=== PATIENT | male | born 1945 | race Hispanic/Latino ===

== ENCOUNTER 2017-10-22 21:48 | Emergency (ER) | payer OTHER ==
[~2017-10-22] VITALS: Ht 172.7 cm; Wt 79.8 kg
[~2017-10-22 21:48] MED LIST: ATORVASTATIN CA20 MG PO; GLIPIZIDE ER10 MG; GLIPIZIDE10 MG PO; GLUCOPHAGE1000 MG; INVOKANA PO; JANUVIA100 MG PO; LANTUS 3ML100 UNITS/ SC; LISINOPRIL20 MG PO; METFORMIN HCL1000 MG PO
[2017-10-22] MEDS ORDERED: HYDROCODONE/APAP 10MG-325MG TAB PO ONE (23:00)
== END 2017-10-22 23:37 | disposition home or self-care (01) ==
LOC: ER 21:48
DX: M43.6 Torticollis (principal); M62.838 Other muscle spasm
CPT/HCPCS: 93005; 99283

== ENCOUNTER 2019-05-20 09:14 | Observation (INO) | payer MEDICARE, OTHER ==
[~2019-05-20] VITALS: Ht 172.7 cm; Wt 79.8 kg
[2019-05-20] MEDS ORDERED: NOVOLOG100 UNIT/1 SQ (09:29)
[2019-05-20] MEDS ORDERED: LEVEMIR100 UNIT/1 SQ (09:29)
[2019-05-20 09:44] LABS: BASOPHILS # (AUTO) 0.1 (0.0-0.1); BASOPHILS % 0.8 % (0.0-1.0); EOSINOPHILS # (AUTO) 0.2 (0.0-0.4); HEMATOCRIT 45.8 % (38.2-49.6); HEMOGLOBIN 15.3 g/dL (14.0-18.0); LYMPHOCYTES # (AUTO) 2.2 (1.0-3.2); LYMPHOCYTES % 30.5 % (18.0-39.1); MEAN CORPUSCULAR HEMOGLOBIN 31.2 pg (28-32); MEAN CORPUSCULAR HGB CONC 33.4 g/dL (31-35); MEAN CORPUSCULAR VOLUME 93.3 fL (81-99); MONOCYTES # (AUTO) 0.7 (0.2-0.8); MONOCYTES % 9.5 % (4.4-11.3); NEUTROPHILS # (AUTO) 4.1 (2.1-6.9); NEUTROPHILS % 55.8 % (38.7-80.0); PLATELET COUNT 200 x10e3/uL (140-360); RED BLOOD COUNT 4.91 x10e6/uL (4.3-5.7); RED CELL DISTRIBUTION WIDTH 12.8 % (11.7-14.4)
[2019-05-20 09:56] LABS: INR 0.95; PARTIAL THROMBOPLASTIN TIME 29.7 seconds (23.8-35.5); PROTHROMBIN TIME 13.2 seconds (11.9-14.5)
--- NOTE | 2019-05-20 09:59 | Diagnostic Imaging Report ---
EXAMINATION: PA and lateral views of the chest. COMPARISON: None CLINICAL HISTORY: Chest pain DISCUSSION: Lines/tubes: None. Lungs: The lungs are well inflated and clear. No pneumonia or pulmonary edema. Pleura: No pleural effusion or pneumothorax. Heart and mediastinum: The cardiomediastinal silhouette is normal. Bones and soft tissues: No acute bony abnormalities. IMPRESSION: No acute cardiopulmonary abnormalities. Signed by: Dr. Steve Saenz M.D. on 05/20/2019 9:56 AM
[2019-05-20 10:08] LABS: ALANINE AMINOTRANSFERASE 78 IU/L (0-55); ALBUMIN 3.9 g/dL (3.5-5.0); ALBUMIN/GLOBULIN RATIO 1.1 (0.8-2.0); ALKALINE PHOSPHATASE 83 IU/L (40-150); ANION GAP 15.1 mmol/L (8-16); BLOOD UREA NITROGEN 14 mg/dL (7-26); BUN/CREATININE RATIO 13 (6-25); CALCIUM 9.3 mg/dL (8.4-10.2); CARBON DIOXIDE 24 mmol/L (22-29); CHLORIDE 99 mmol/L (98-107); CREATININE, SERUM 1.04 mg/dL (0.72-1.25); EST GLOMERULAR FILTRATION RATE > 60 ML/MIN (60-); GLUCOSE 252 mg/dL (74-118); POTASSIUM 4.1 mmol/L (3.5-5.1); SODIUM 134 mmol/L (136-145)
[2019-05-20] MEDS ORDERED: ASPIRIN 81 MG CHEW TAB PO NR (10:18)
[2019-05-20] MEDS ORDERED: ONDANSETRON HCL INJ 2MG/ML 2ML 2 MG/ML VIAL IV NR (10:30)
[2019-05-20 10:41] LABS: BILIRUBIN,URINE NEGATIVE (NEGATIVE); CLARITY,URINE CLEAR (CLEAR); COLOR,URINE YELLOW (YELLOW); KETONES,URINE NEGATIVE (NEGATIVE); LEUKOCYTE ESTERASE ,URINE NEGATIVE (NEGATIVE); NITRITE,URINE NEGATIVE (NEGATIVE); PROTEIN,URINE DIPSTICK NEGATIVE (NEGATIVE); URINE UROBILINOGEN 0.2 mg/dL (0.2 - 1)
[2019-05-20 11:16] LABS: BACTERIA,URINE FEW /HPF; EPITHELIAL CELLS,URINE FEW /LPF; RBC,URINE 0-5 /HPF (0-5); WBC,URINE (MAN) 0-5 /HPF (0-5)
[2019-05-20 11:41] LABS: CREATINE KINASE MB 1.3 ng/mL (0-5.0)
[2019-05-20] MEDS ORDERED: DEXTROSE 50% SYRINGE 50 ML IV PRN (11:45)
[2019-05-20] MEDS ORDERED: MORPHINE SULFATE 2 MG/ML SYR 1ML IV PRN (11:45)
[2019-05-20] MEDS ORDERED: NITROGLYCERIN 0.4 MG SUBL SL PRN (11:45)
[2019-05-20] MEDS ORDERED: ONDANSETRON HCL INJ 2MG/ML 2ML 2 MG/ML VIAL IV PRN (11:45)
--- NOTE | 2019-05-20 11:46 | NUR ---
H&P cc: chest discomfort HPI: 73yoM, PCP none, now with chest tightness. Started as burning in stomach, then GIBBS, then chest tightness. Some nausea; no dizziness/diaphoresis; Stress test 3 yrs pt states was negative; Does have hx cigs. PMH: Nicotine dependence in remission, DM2, HTN, HLD, Hepatic steatosis, mediastinal and hilar LAD, pulmonary nodule PSHx: back Allergies; see emr Fh/SH: ; hx cigs; retired transport truck driver meds; see MAR ROS; no f/c/s/V/D/skin rash/dizziness/vision changes/focal limb weakness V/S; revd PE tired appearing anicteric ns1s2 mod bs soft nt nd no e/t skin dry n. affect a&ox3; [facility] labs/.meds revd A/P: Atypical chest pain- asa/statin/BB/lovenox daily GERD- add ppi HTN- aceI; add BB HLD- statin; increase dose DM2- ssi; hba1c/lipids; insulin Nicotine dependence in remission- quit yrs ago Prop; lovenox; ppi dispo; trend enzymes; lipids; hba1c Jairo Dailey MD, PhD
[2019-05-20] MEDS ORDERED: ZOLPIDEM TARTRATE 5 MG TAB PO PRN (12:00)
[2019-05-20] MEDS ORDERED: SENNOSIDES 8.6 MG TAB PO PRN (12:00)
[2019-05-20] MEDS ORDERED: ACETAMINOPHEN 325 MG TAB PO PRN (12:00)
[2019-05-20 12:06] LABS: CHOL/HDL RATIO 3.7 (3.9-4.7)
[2019-05-20] MEDS: PANTOPRAZOLE SOD 40 MG TABEC PO SCH (12:30)
[2019-05-20] MEDS: INSULIN LISPRO 100 UNIT/1 ML 3ML VIAL SQ SCH ×2 (12:30→21:52)
[2019-05-20] MEDS: METOPROLOL TARTRATE 25 MG TAB PO SCH ×2 (12:50→21:09)
--- NOTE | 2019-05-20 14:29 | NUR ---
PT TO THE FLOOR AT THIS TIME FROM ER. VITALS WNL. NO C/O PAIN OR DISCOMFORT. PT DENIES NEEDS AT THIS TIME.
[2019-05-20 14:47] VITALS: BP 130/76
[2019-05-20 16:59] VITALS: BP 127/77
[2019-05-20] MEDS ORDERED: ENOXAPARIN SOD INJ 40 MG/0.4 ML SYR SC SCH (17:00)
[2019-05-20 18:55] LABS: CREATINE KINASE 51 IU/L (30-200)
--- NOTE | 2019-05-20 19:22 | NUR ---
SBAR REPORT RECEIVED FROM SHAWNA RN, PATIENT SEEN WALKING FROM BATHROOM, GAIT STEADY, AOX3, NO DISTRESS NOTED, DENIES CP AT THIS TIME, INTRODUCED TO ONCOMING STAFF, PLAN OF CARE, MADE AWARE OF HOURLY ROUNDING USING 5P'S, ACKNOWLEDGE WITH TEACHBACK CALL LIGHT WITHIN REACH
[2019-05-20 20:00] VITALS: BP 103/67
[2019-05-20] MEDS ORDERED: ATORVASTATIN 40 MG TAB PO SCH (21:00)
[2019-05-20] MEDS ORDERED: INSULIN DETEMIR 22 UNIT SQ SCH (21:00)
[2019-05-20] MEDS ORDERED: INSULIN GLARGINE 100 UNITS/ML VIAL SQ SCH (21:00)
[2019-05-20 21:14] VITALS: BP 118/76
[2019-05-20 21:15] VITALS: BP 118/76
[2019-05-21] VITALS (8 sets, daily range): BP systolic 107–142; BP diastolic 70–73
[2019-05-21 01:24] LABS: CREATINE KINASE 57 IU/L (30-200)
[2019-05-21 06:36] LABS: BASOPHILS # (AUTO) 0.1 (0.0-0.1); BASOPHILS % 1.1 % (0.0-1.0); EOSINOPHILS # (AUTO) 0.2 (0.0-0.4); EOSINOPHILS % 3.4 % (0.0-6.0); HEMATOCRIT 45.6 % (38.2-49.6); HEMOGLOBIN 14.9 g/dL (14.0-18.0); LYMPHOCYTES # (AUTO) 2.5 (1.0-3.2); LYMPHOCYTES % 35.2 % (18.0-39.1); MEAN CORPUSCULAR HGB CONC 32.7 g/dL (31-35); MONOCYTES % 13.5 % (4.4-11.3); NEUTROPHILS # (AUTO) 3.3 (2.1-6.9); NEUTROPHILS % 46.2 % (38.7-80.0); PLATELET COUNT 181 x10e3/uL (140-360); RED CELL DISTRIBUTION WIDTH 12.9 % (11.7-14.4)
[2019-05-21 07:02] LABS: ALANINE AMINOTRANSFERASE 64 IU/L (0-55); ALBUMIN 3.5 g/dL (3.5-5.0); ALKALINE PHOSPHATASE 88 IU/L (40-150); BLOOD UREA NITROGEN 18 mg/dL (7-26); BUN/CREATININE RATIO 19 (6-25); CALCIUM 8.9 mg/dL (8.4-10.2); CARBON DIOXIDE 21 mmol/L (22-29); CHLORIDE 104 mmol/L (98-107); CHOLESTEROL 143 MD/DL (0-199); CREATININE, SERUM 0.95 mg/dL (0.72-1.25); EST GLOMERULAR FILTRATION RATE > 60 ML/MIN (60-); GLUCOSE 252 mg/dL (74-118); HDL CHOLESTEROL 36 MG/DL (40-60); LDL CHOLESTEROL 84 MG/DL (60-130); SODIUM 136 mmol/L (136-145); TRIGLYCERIDES 113 MG/DL (0-149)
--- NOTE | 2019-05-21 07:08 | NUR ---
BEDSIDE SHIFT REPORT GIVEN TO ONCOMING RN, PATIENT SEEN SLEEPING, EASILY AWAKEN NO DISTRESS NOTED, CALL LIGHT WITHIN REACH
[2019-05-21] MEDS: PANTOPRAZOLE SOD 40 MG TABEC PO SCH (07:30)
[2019-05-21] MEDS: INSULIN LISPRO 100 UNIT/1 ML 3ML VIAL SQ SCH ×2 (07:30→11:30)
[2019-05-21] MEDS ORDERED: LISINOPRIL 20 MG TAB PO SCH (09:00)
[2019-05-21] MEDS ORDERED: ASPIRIN 325 MG TAB PO SCH (09:00)
[2019-05-21] MEDS ORDERED: ASPIRIN 81 MG ENTERIC COATED PO SCH (09:00)
[2019-05-21 09:18] LABS: CREATINE KINASE 55 IU/L (30-200)
[2019-05-21] MEDS: METOPROLOL TARTRATE 25 MG TAB PO SCH (09:19)
--- NOTE | 2019-05-21 09:34 | NUR ---
D/C summary Principal dx: Atypical chest pain- asa/statin/BB/lovenox daily GERD- add ppi Secondary Dx: HTN- aceI; add BB HLD- statin; increase dose DM2- ssi; hba1c/lipids; insulin Nicotine dependence in remission- quit yrs ago Prop; lovenox; ppi dispo; trend enzymes; lipids; hba1c 05/21 Hba1c/LDL 13.1/84 all cadiac enzymes negative d/c home f/u pcp 1 week and cardiology 2-5 days stable d/c>35mins Jairo Dailey MD, PhD
--- NOTE | 2019-05-21 10:17 | NUR ---
Received patient, alert and responsive, no apparent distress at this time, call light within reach, bed alarms in place, will monitor, denies chest pains, glucose toxic with A1C >13%, will monitor
--- NOTE | 2019-05-21 10:19 | NUR ---
Patient alert and responsive, OOB and ambulating, education provided on managing diabetes and A1C goal given high cardiovascular risk equivalence, verbalized understanding for better control, will monitor.
[2019-05-21] MEDS ORDERED: ASPIRIN325 MG PO (14:08)
[2019-05-21] MEDS ORDERED: PROTONIX40 MG/ML PO (14:08)
[2019-05-21] MEDS ORDERED: Atorvastatin PO (14:08)
[2019-05-21] MEDS ORDERED: LOPRESSOR25 MG PO (14:08)
--- NOTE | 2019-05-21 15:44 | NUR ---
Rounds by Dr. Carmona, orders to discharge [place] to penis, S/P cath to leg bag and educate patient on use, will call attending for discharge orders.
--- NOTE | 2019-05-21 16:00 | NUR ---
Patient discharged by attending, provided with prescriptions, discharge summary, education information on DM provided, IV line removed with Cath tip in place, dressing applied, patient discharged.
== END 2019-05-21 16:05 | disposition home or self-care (01) ==
LOC: ER 09:14 → ERHOLD 11:42 → MED/SURG2 14:30
PROVIDERS: ADMIT Internal Medicine; ATTEND Internal Medicine
DX: R07.89 Other chest pain (principal); K21.9 Gastro-esophageal reflux disease without esophagitis; I10 Essential (primary) hypertension; E11.9 Type 2 diabetes mellitus without complications; Z87.891 Personal history of nicotine dependence
CPT/HCPCS: 36415 ×2; 71046; 80053 ×2; 80061 ×2; 81001; 82550 ×2; 82553 ×2; 82948 ×2; 83036; 84484 ×2; 85025 ×2; 85610; 85730; 93005; 96372; 99284; G0378 ×2; J1650; S0164 ×2